=== PATIENT | female | born 2000 | race African-American/Black ===

== ENCOUNTER 2025-02-09 22:32 | Emergency (ER) | payer MEDICAID ==
[~2025-02-09] VITALS: Ht 160 cm; Wt 52.0 kg
[2025-02-09 22:40] VITALS: O2SAT 98
[2025-02-09] MEDS: IBUPROFEN 600MG TABLET PO ONE (23:18)
[2025-02-09 23:52] LABS: TROPONIN I HIGH SENSITIVITY < 4 ng/L (3.0-34)
[2025-02-10 00:23] VITALS: BP 98/68; PULSE 68; RESP 16; TEMP 36.8; O2SAT 99
== END 2025-02-10 00:41 | disposition home or self-care (01) ==
LOC: ER 22:32
DX: R07.89 Other chest pain (principal); J45.909 Unspecified asthma, uncomplicated; F12.90 Cannabis use, unspecified, uncomplicated
CPT/HCPCS: 36415; 84484; 93005; 99284